=== PATIENT | female | born 1955 | race Caucasian/White ===

== ENCOUNTER 2019-10-03 07:48 | Inpatient (IN) ==
--- NOTE | 2019-09-10 16:19 | PAT Medication Instructions ---
Medication Instructions Date of Service September 10, 2019 Home Medications albuterol sulfate 4 inh INHALATION QID PRN amlodipine 5 mg PO QAM indomethacin 25 mg PO BID levothyroxine 100 mcg PO QAM linaclotide [Linzess] 72 mcg PO QAM lisinopril 30 mg PO QAM lorcaserin 10 mg PO BID omeprazole magnesium [Prilosec OTC] 20 mg PO QAM oxycodone-acetaminophen 1 tab PO Q6H PRN ASK your surgeon for instructions indomethacin 25 mg PO BID DO NOT take the morning of surgery linaclotide [Linzess] 72 mcg PO QAM lisinopril 30 mg PO QAM lorcaserin 10 mg PO BID Take morning of surgery With a small sip of water, OTHERWISE NOTHING TO EAT OR DRINK AFTER MIDNIGHT: albuterol sulfate 4 inh INHALATION QID PRN (if needed, and bring with you to the hospital) amlodipine 5 mg PO QAM levothyroxine 100 mcg PO QAM omeprazole magnesium [Prilosec OTC] 20 mg PO QAM oxycodone-acetaminophen 1 tab PO Q6H PRN (if needed, may be taken up to four hours before surgery) Other Notes If you have any questions please call us at [phone] or [phone] or or [phone]
--- NOTE | 2019-09-11 08:41 | History & Physical Report ---
Date of Service September 11, 2019 date of surgery: 10-03-19 Assessment & Plan (1) Arthritis of knee, left: Risks and benefits of procedure discussed in detail today, patient would like to proceed with a Left total knee replacement at [facility] as scheduled. will obtain medical clearance from Dr Covarrubias prior to surgery as well as obtain PATs at [facility]. Will place on ASA 81mg po bid x 1 month post op, f/u 2 weeks post op for routine post-operative care and x-ray, sooner if having any problems. will make arrangements for HHPT at the time of discharge. At this point in time, has failed conservative measures and would like to proceed with surgical intervention. History of Present Illness Chief Complaint: left knee pain Primary Care Provider: Hakan Covarrubias MD Blanca is a 64 year old female who complains of left knee pain, presents for pre- op evaluation prior to a left total knee replacement by dr Agustin at [facility]. she c omplains of pain, decreased range of motion, instability and stiffness in the left knee. she states that the symptoms have been chronic and non-traumatic and the symptoms occur constantly with intermittent worsening. Currently the patient states that the symptoms are moderate-severe. The pain is described as aching, sharp and throbbing. The symptoms occur continuously. The symptoms are aggravated by ascending stairs, daily activities, first steps while awake walking. Prior NSAIDs include Ibuprofen and Aleve. she states that she has had previous cortisone and visco injections at least 4 or 5 years ago. Allergies Allergy/AdvReac Type Severity Reaction Status Date / Time No Known Allergies Allergy Verified 08/22/19 11:50 Home Medications Home Medications Medication Instructions Recorded Confirmed Type albuterol sulfate 4 inh INHALATION QID PRN 08/22/19 08/22/19 History amlodipine 5 mg PO QAM 08/22/19 08/22/19 History indomethacin 25 mg PO BID 08/22/19 08/22/19 History levothyroxine 100 mcg PO QAM 08/22/19 08/22/19 History linaclotide [Linzess] 72 mcg PO QAM 08/22/19 08/22/19 History lisinopril 30 mg PO QAM 08/22/19 08/22/19 History lorcaserin 10 mg PO BID 08/22/19 08/22/19 History omeprazole magnesium [Prilosec OTC] 20 mg PO QAM 08/22/19 08/22/19 History oxycodone-acetaminophen 1 tab PO Q6H PRN 08/22/19 08/22/19 History Past Med/Surg History Medical History Asthma allergy induced Constipation GERD (gastroesophageal reflux disease) History of anesthesia reaction pt states that she had episode of waking during surgery and concerned that she was not proplerly sedated Hypertension Osteoarthritis Vocal cord nodules Surgical History History of right knee joint replacement History of tonsillectomy and adenoidectomy Hx of colonoscopy Hx of removal of cyst thymus gland Family History (Updated 09/11/19 @ 11:40 by Prateek Greer PA-C) Unknown No family history of adverse response to anesthesia Social History Preferred Language: Welsh Communication Ability: Effective Beliefs That Will Affect Care: None Current Living Situation: Spouse Feels Safe at Home: Yes Safety Concerns: Feels Safe At This Time Smoking Status: Former smoker Do You Dip or Chew Tobacco: No ; Smoking End Date: 05/2019 ; Second Hand Exposure: No ; Hx Alcohol Use: No Hx Substance Use: No Review of Systems Review of Systems: All systems reviewed & are unremarkable except as noted in HPI & below Constitutional: no fever, no chills and no sweats Respiratory: no cough and no dyspnea Cardiovascular: no chest pain, no dyspnea and no orthopnea Gastrointestinal: no abdominal pain, no nausea and no vomiting Musculoskeletal: as per Subjective / HPI Physical Exam Physical Exam: Ht: 4'11" Wt: 230lb BMI: 46.1 BP: 130/68 Pulse: 66 Constitutional: WD/WN, vitals as above no acute distress Respiratory: normal respiratory effort, lungs clear to auscultation no respiratory distress, no labored breathing and does not use accessory muscles Cardiovascular: RRR, no murmur, no edema Gastrointestinal (Abdomen): normal bowel sounds, soft, nontender, no hepatosplenomegaly Musculoskeletal: Knee: + knee abnormal to inspection (left knee), + effusion (mild ), + limited ROM of knee (ROM 0/3/110), + knee ROM with crepitation, + joint line tenderness (medial joint line) and + Tung's sign positive; no deformity, no skin erythema, no ecchymosis, no valgus laxity, no varus laxity, anterior drawer test negative, Mel's sign negative and pivot shift test negative Results & Data Laboratory Results Left Knee X-ray from 07/27/19 showing advanced degenerative changes to the left knee, greatest medial compartments and patellofemoral joint, showing joint space narrowing, osteophyte formation and subchondral sclerosis. no acute bony pathology noted.
--- NOTE | 2019-09-11 13:44 | Anesthesiology Consultation ---
Date of Service September 11, 2019 Assessment & Plan (1) Encounter for pre-operative examination: Pt will need echo prior to surgery to evaluate murmur. S/P R TKA 2013 -- SAB + REGIONAL x 1 ATTEMPT EACH. NO ISSUES NOTED ON RECORD, BUT PATIENT REPORTS INTRAOPERATIVE AWARENESS THAT SHE FOUND VERY DISCONCERTING AND SHE IS CONCERNED ABOUT THIS HAPPENING AGAIN. Chart Review Chart Review: Acceptable Risk for Surgery (pending PCP clearance and echo (TBA)) and Patient seen in Pre Admission Testing Teaching & Discussion Instructed NPO after midnight before surgery, except medications with 15 cc of water. Medication instructions provided according to the PAT guidelines. History Surgery Operation Date: 10/03/19 09:00 Proposed Procedures p Left Total Knee Arthroplasty - Jovan Agustin DO Height/Weight Height: 5 ft Weight: 105.8 kg Allergies Allergy/AdvReac Type Severity Reaction Status Date / Time No Known Allergies Allergy Verified 08/22/19 11:50 Medications Home Medications Medication Instructions Recorded Confirmed Last Taken albuterol sulfate 4 inh INHALATION QID PRN 08/22/19 08/22/19 Unknown amlodipine 5 mg PO QAM 08/22/19 08/22/19 Unknown indomethacin 25 mg PO BID 08/22/19 08/22/19 Unknown levothyroxine 100 mcg PO QAM 08/22/19 08/22/19 Unknown linaclotide [Linzess] 72 mcg PO QAM 08/22/19 08/22/19 Unknown lisinopril 30 mg PO QAM 08/22/19 08/22/19 Unknown lorcaserin 10 mg PO BID 08/22/19 08/22/19 Unknown omeprazole magnesium [Prilosec OTC] 20 mg PO QAM 08/22/19 08/22/19 Unknown oxycodone-acetaminophen 1 tab PO Q6H PRN 08/22/19 08/22/19 Unknown Past Medical History Medical History (Updated 09/12/19 @ 08:57 by Ben Mcguire) Asthma allergy induced. Since quitting smoking 05/2019, has used albuterol only 3x. Constipation GERD (gastroesophageal reflux disease) Hypertension Morbid obesity Osteoarthritis Vocal cord nodules Exercise / Class Metabolic Activity II 4-5 Yardwork/Stairs/Walk up hill (Denies CP or SOB with 1 FOS) Past Family History Family History (Updated 09/11/19 @ 11:40 by Prateek Greer PA-C) Unknown No family history of adverse response to anesthesia Past Surgical History Surgical History History of right knee joint replacement History of tonsillectomy and adenoidectomy Hx of colonoscopy Hx of removal of cyst thymus gland Past Anesthesia History No Family Hx of Anesthesia Complications Pt had some awareness with previous knee surgery and found it very disconcerting; she is concerned about this happening again. History of PONV No Hx of PONV and No Hx of Motion Sickness Social History Smoking Status: Former smoker Do You Dip or Chew Tobacco: No Smoking End Date: 05/2019 Hx Alcohol Use: No Hx Substance Use: No Review of Systems Pt denies any recent chest pain, shortness of breath, palpitations, cough, fever or URI. Physical Exam Vital Signs BP: 148/80 P: 63bpm SPO2: 97% RA T: 97.8 F R: 14 Constitutional + obese ENMT Mouth: + dentures (partial upper); no chipped teeth and no loose teeth Thyromental Distance: < 3.5 Finger Breadths (3) Mallampati Class: II Neck normal visual inspection; neck extension not limited Respiratory normal respiratory effort Auscultation: lungs clear to auscultation bilaterally Cardiovascular Rate/Rhythm: regular rate and regular rhythm Heart Sounds: + murmur (II/ systolic, loudest at RSB/2nd ICS) Vessels: no carotid bruit Extremities: no edema Testing Laboratory Results 09/11/19 13:51 09/11/19 13:51 PT 10.1 Seconds (9.0-12.0) 09/11/19 13:51 INR 1.0 (0.9-1.1) 09/11/19 13:51 APTT 29.5 Seconds (21.0-31.0) 09/11/19 13:51 Hemoglobin A1c 5.8 % (4.5-5.6) H 09/11/19 13:51 Urine Color Yellow 09/11/19 13:51 Urine Appearance Clear (Clear) 09/11/19 13:51 Urine pH 5.5 (4.5-7.5) 09/11/19 13:51 Ur Specific [place] 1.023 (1.000-1.030) 09/11/19 13:51 Urine Protein Negative (Negative) 09/11/19 13:51 Urine Glucose (UA) Negative (Negative) 09/11/19 13:51 Urine Ketones Negative (Negative) 09/11/19 13:51 Urine Nitrite Negative (Negative) 09/11/19 13:51 Ur Leukocyte Esterase Negative (Negative) 09/11/19 13:51 Urine WBC (Auto) 1-5 /hpf (0-5) 09/11/19 13:51 Urine RBC (Auto) 5-10 /hpf (0-4) H 09/11/19 13:51 U Hyaline Cast (Auto) 1-5 /lpf (0-5) 09/11/19 13:51 U Epithel Cells (Auto) >30 /lpf (0-5) H 09/11/19 13:51 Urine Bacteria (Auto) Negative (Negative) 09/11/19 13:51 Blood Type A Negative 09/11/19 13:51 Antibody Screen NEGATIVE 09/11/19 13:51 Electrocardiogram Date: 09/11/19 Findings: + SB @ (59) Nonspecific ST abnormality. Chest X-Ray Date: 09/11/19 Findings: + NAD Median sternotomy wires noted. (Patient had thymectomy, not CABG).
--- NOTE | 2019-09-11 14:04 | Electrocardiogram Report ---
Test Reason : Blood Pressure : / mmHG Vent. Rate : 059 BPM Atrial Rate : 059 BPM P-R Int : 184 ms QRS Dur : 098 ms QT Int : 446 ms P-R-T Axes : 071 060 061 degrees QTc Int : 441 ms Sinus bradycardia Nonspecific ST abnormality Abnormal ECG No previous ECGs available Confirmed by Victor Hugo Cohen ([id number]) on 09/11/2019 2:04:50 PM Referred By: Jovan Agustin Confirmed By:Victor Hugo Cohen
--- NOTE | 2019-09-11 14:58 | XRay Report ---
XR chest Pre-admission PA/Lat CLINICAL HISTORY: Preoperative evaluation. COMPARISON STUDY: Chest radiograph November 09, 2013. FINDINGS: Lung volumes are normal. Lungs are clear. There is no pneumothorax or pleural effusion. Car diac size is normal. Mediastinal contours are normal. There is no evidence for pulmonary edema. Media n sternotomy wires are incidentally noted. IMPRESSION: No acute cardiopulmonary findings. ACT 112: Negative or not required by law. Electronically signed by: Chirag Cannon M.D. 09/11/2019 2:57 PM
[2019-09-11 15:58] LABS: Appearance Urine Clear (Clear); Bacteria Urine Automated Negative (Negative); Basophils # (auto) 0.05 K/uL (0-0.2); Basophils % (auto) 0.6 %; Bilirubin Urine Negative (Negative); Blood Urine Trace (Negative); Color Urine Yellow; Eosinophils # (auto) 0.24 K/uL (0-0.5); Epithelial Cell Urine Auto >30 /lpf (0-5); Glucose Urine UA Negative (Negative); Hemoglobin 13.9 g/dL (12.0-16.0); Immature Granulocytes # (auto) 0.05 K/uL (0.00-0.02); Immature Granulocytes % (auto) 0.6 %; Ketones Urine Negative (Negative); Leukocyte Esterase Urine Negative (Negative); Lymphocytes # (auto) 2.95 K/uL (1.2-3.4); Lymphocytes % (auto) 37.5 %; Mean Corpuscular Hgb Conc 33.1 g/dL (32-36); Mean Corpuscular Volume 93.8 fL (80-100); Mean Platelet Volume 9.6 fL (7.4-10.4); Monocytes % (auto) 8.9 %; Neutrophils # (auto) 3.88 K/uL (1.4-6.5); Neutrophils % (auto) 49.4 %; Nitrite Urine Negative (Negative); Platelet Count 373 K/uL (130-400); Protein Urine Negative (Negative); RDW Coefficient of Variation 14.4 % (11.5-14.5); RDW Standard Deviation 48.9 fL (36.4-46.3); Red Blood Count 4.48 M/uL (4.2-5.4); Specific Gravity Urine 1.023 (1.000-1.030); Urobilinogen Urine Negative (Negative); White Blood Count 7.87 K/uL (4.8-10.8); pH Urine 5.5 (4.5-7.5)
[2019-09-11 16:14] LABS: Partial Thromboplastin Ratio 1.1; Partial Thromboplastin Time 29.5 Seconds (21.0-31.0); Prothrombin Time 10.1 Seconds (9.0-12.0)
[2019-09-11 16:23] LABS: Albumin Level 3.4 gm/dl (3.4-5.0); BUN Creatinine Ratio 20.8 (10-20); Calcium 9.2 mg/dl (8.5-10.1); Creatinine Clr Calc Pharmacy 96.1 ml/min; Est GFR (African American) 108.7; Est GFR (Non-African American) 93.8; Potassium 4.6 mmol/L (3.5-5.1)
[2019-09-12 07:24] LABS: Estimated Average Glucose 120 mg/dl; Hemoglobin A1C 5.8 % (4.5-5.6)
[~2019-10-03 07:48] MED LIST: ACETAMINOPHEN 500 MG TAB PO SCH; BUPIVACAINE 0.5 % 5 MG/1 ML PF 10ML VIAL ONE; CEFAZOLIN 2000MG 2,000 MG/15 ML SYR IV SCH; CeleBREX 200 MG CAP PO SCH; FAMOTIDINE 20 MG TAB PO SCH; GABAPENTIN 600 MG DOSE PO SCH; LR 500ML BOLUS, THEN 15ML/HR IV SCH; ROPIVACAINE 0.5% 5 MG/ML 30 ML VIAL ONE; TRANEXAMIC ACID 1,000 MG **IV Intra-op IV SCH; TRANEXAMIC ACID 1,000 MG **IV Pre-op IV SCH; dexAMETHasone 4 MG TAB PO SCH
--- NOTE | 2019-10-03 08:35 | History & Physical Bridge Note ---
Date of Service October 03, 2019 History & Physical Bridge Note I have examined the patient, reviewed the History & Physical and in the interval since the performance of the History & Physical I have noted the following changes of clinical significance: no changes noted
[2019-10-03] MEDS ORDERED: fentaNYL citrate 100 MCG/2 ML VIAL ONE (09:22)
[2019-10-03] MEDS ORDERED: LIDOCAINE HCL 2% 2 ML VIAL/AMP(20MG/ML) INFIL ONE (09:22)
[2019-10-03] MEDS ORDERED: PROPOFOL IV EMULSION 10 MG/ML 20 ML VIAL IV ONE (09:22)
[2019-10-03] MEDS ORDERED: MIDAZOLAM HCL 1 MG/ML 2ML VIAL ONE ×3 (09:22→12:49)
[2019-10-03] MEDS ORDERED: ONDANSETRON INJ 2 MG/ML 2 ML VIAL IV PRN ×2 (10:47→13:23)
[2019-10-03] MEDS ORDERED: BACITRACIN INJ 50,000 UNIT VIAL ONE (10:47)
[2019-10-03] MEDS ORDERED: KETOROLAC 30 MG/ML VIAL IV PRN (10:47)
[2019-10-03] MEDS ORDERED: ATROPINE SULFATE 0.1 MG/ML 10ML SYR IV PRN (10:47)
[2019-10-03] MEDS ORDERED: ePHEDrine sulfate 50 MG/ML AMP IV PRN (10:47)
[2019-10-03] MEDS ORDERED: HYDROmorphone INJ 1 MG/ML SYRINGE IV PRN ×2 (10:47→13:23)
[2019-10-03] MEDS ORDERED: ROPIVACAINE 0.5% HCL/PF 150 MG, BUPIVACAINE 0.5% MPF 30 ML, EPINEPHrine 30MG/30ML (OR U... INSTIL SCH (11:15)
--- NOTE | 2019-10-03 12:25 | Operative Report ---
Post Operative Report Pre & Post Diagnosis Operation Date: 10/03/19 10:20 Pre-Op Diagnosis: Left Knee Osteoarthritis Post-Op Diagnosis: Left Knee Osteoarthritis I identified the patient and participated in the time-out.: Yes Procedure Operation Date: 10/03/19 10:20 Actual Procedures p Left Total Knee Arthroplasty(Left utilizing journey to [employer] size 4 femur 3 tibia 9 polyethylene 29 oval patella) - Jovan Agustin DO Surgeon Jovan Agustin DO Siebel Administrator CARLO Cordero Estimated Blood Loss 5 Findings Consistent with Post-Op Diagnosis Patient resents with severe end-stage tricompartmental degenerative joint disease left knee for left total knee arthroplasty subchondral sclerosis marginal osteophytes varus alignment subchondral cystic changes moderate to large effusion was noted Specimens Bone and cartilage Drains Medium bore Hemovac Complications none Disposition Accompanied Patient To Recovery: No Disposition: Recovery Room Indications Patient presents with severe end-stage DJD left knee after failed attempted conservative management including physical therapy anti-inflammatories relative rest activity modification corticosteroid injection Visco supplementation the above intraoperative findings were noted. Description of Procedure After proper prepping and draping of the left lower extremity anterior midline incision was made over the region of the extensor extensor mechanism after meticulous hemostasis was obtained and maintained in subcutaneous tissues a medial parapatellar incision was made The patella was subluxed lateralward the medial lateral gutter were cleaned from any hypertrophic synovitis and scar tissue of the distal femoral block was placed and the distal femoral osteotomy cut was made subsequently the chamfers anterior and posterior osteotomy cuts were made utilizing the 4-in-1 block the tibia was subsequently subluxed anteriorward medial and ateral meniscal remnants were excised in their entirety remnants of the anterior and posterior cruciate ligaments were excised in their entirety excellent exposure of the proximal tibia was obtained the tibial osteotomy guide was placed on the proximal tibial osteotomy cut was made once again the knee was irrigated with copious amounts of sterile saline solution the patella was subsequently everted lateralward thickened scar tissue around the patella was removed the patella was subsequently cut utilizing a freehand technique and was drilled prepared for final preparation and placement of patella socially flexion-extension gaps were checked and the equal and symmetric trials were placed to the appropriate femoral and tibial trials with poly-spacer being placed for equal flexion and extension gaps and full range of motion including extension to 0 and flexion to 140 the trial components after having been taken to recovery range of motion was subsequently removed meticulous hemostasis was obtained and maintained subsequently a knee block injection of joint cocktail including ropivacaine 0.5% 150 mg. Bupivacaine 0.5% epinephrine 1-200,030 mL's toradol 30 mg dexamethasone 4 mg ketamine 10 mg clonidine 100 micrograms normal saline solution 30 mg was infiltrated into the soft tissues of the posterior knee medial lateral gutters and periosteal synovium special attention was paid to protect neurovascular structures at all times subsequently trial components having been removed the knee was irrigated with sterile saline solution. debris was removed the proximal tibia was subsequently prepared and was made ready for the placement of the tibial component tibial component was also cemented and tamped into position the femoral component was subsequently placed and cemented in the position the patellar component was subsequently cemented in position because hemostasis once again obtained and maintained wound having been thoroughly irrigated with debridement and debridement lavage was per formed as well as a medial parapatellar incision closed with #1 Vicryl in interrupted fashion subcutaneous was closed with #2 Vicryl skin was closed with skin clips. PA-C was necessary for prepping and drapping as well as wound closure of deep fascia Sub cutaneous tissue and skin and was necessary for the case. A sterile compressive dressing was placed patient was taken to recovery in stable condition of report dictated by Vamsi I attest to the content of the Intraoperative Record and any orders documented therein. Any exceptions are noted below. I attest to the content of the Intraoperative Record and any orders documented therein. Any exceptions are noted below.
--- NOTE | 2019-10-03 12:28 | Operative Report ---
Post Operative Report Pre & Post Diagnosis Operation Date: 10/03/19 10:20 Pre-Op Diagnosis: Left Knee Osteoarthritis Post-Op Diagnosis: Left Knee Osteoarthritis I identified the patient and participated in the time-out.: Yes Procedure Operation Date: 10/03/19 10:20 Actual Procedures p Left Total Knee Arthroplasty(Left) utilizing [employer] journey to non- block total knee arthroplasty size 4 femur size 3 tibia size 9 polyethylene size 29 oval patella- Jovan Agustin DO Surgeon Jovan Agustin DO Procurement Buyer CARLO Cordero Estimated Blood Loss 5 Findings Consistent with Post-Op Diagnosis Patient presents with severe end-stage DJD left knee [id number] varus alignment 10 degree flexion contracture medial and lateral marginal osteophyte subchondral cystic formation with moderate to large effusion no response to conservative management Specimens Bone and cartilage Drains Medium bore Hemovac Complications none Disposition Accompanied Patient To Recovery: No Disposition: Recovery Room Indications Patient presents being seen evaluate complaints of ongoing pain trouble to her left knee no response to conservative management she is failed attempted corticosteroid injection Visco supplementation relative rest activity modification weight loss she has had a previous right knee replacement done successfully presents today for left total knee arthroplasty the above intraoperative findings were noted. Description of Procedure After proper prepping and draping of the left lower extremity anterior midline incision was made over the region of the extensor extensor mechanism after meticulous hemostasis was obtained and maintained in subcutaneous tissues a medial parapatellar incision was made The patella was subluxed lateralward the medial lateral gutter were cleaned from any hypertrophic synovitis and scar tissue of the distal femoral block was placed and the distal femoral osteotomy cut was made subsequently the chamfers anterior and posterior osteotomy cuts were made utilizing the 4-in-1 block the tibia was subsequently subluxed anteriorward medial and ateral meniscal remnants were excised in their entirety remnants of the anterior and posterior cruciate ligaments were excised in their entirety excellent exposure of the proximal tibia was obtained the tibial osteotomy guide was placed on the proximal tibial osteotomy cut was made once again the knee was irrigated with copious amounts of sterile saline solution the patella was subsequently everted lateralward thickened scar tissue around the patella was removed the patella was subsequently cut utilizing a freehand technique and was drilled prepared for final preparation and placement of patella socially flexion-extension gaps were checked and the equal and symmetric trials were placed to the appropriate femoral and tibial trials with poly-spacer being placed for equal flexion and extension gaps and full range of motion including extension to 0 and flexion to 140 the trial components after having been taken to recovery range of motion was subsequently removed meticulous hemostasis was obtained and maintained subsequently a knee block injection of joint cocktail including ropivacaine 0.5% 150 mg. Bupivacaine 0.5% epinephrine 1-200,030 mL's toradol 30 mg dexamethasone 4 mg ketamine 10 mg clonidine 100 micrograms normal saline solution 30 mg was infiltrated into the soft tissues of the posterior knee medial lateral gutters and periosteal synovium special attention was paid to protect neurovascular structures at all times subsequently trial components having been removed the knee was irrigated with sterile saline solution. debris was removed the proximal tibia was subsequently prepared and was made ready for the placement of the tibial component tibial component was also cemented and tamped into position the femoral component was subsequently placed and cemented in the position the patellar component was subsequently cemented in position because hemostasis once again obtained and maintained wound having been thoroughly irrigated with debridement and debridement lavage was performed as well as a medial parapatellar incision closed with #1 Vicryl in interrupted fashion subcutaneous was closed with #2 Vicryl skin was closed with skin clips. PA-C was necessary for prepping and drapping as well as wound closure of deep fascia Sub cutaneous tissue and skin and was necessary for the case. A sterile compressive dressing was placed patient was taken to recovery in stable condition of report dictated by Vamsi I attest to the content of the Intraoperative Record and any orders documented therein. Any exceptions are noted below. I attest to the content of the Intraoperative Record and any orders documented therein. Any exceptions are noted below.
[2019-10-03] MEDS ORDERED: MAGNESIUM HYDROXIDE SUSP 30 ML UDC PO PRN (13:23)
[2019-10-03] MEDS ORDERED: METOCLOPRAMIDE HCL INJ 5 MG/ML 2 ML VIAL IV PRN (13:23)
[2019-10-03] MEDS ORDERED: NALOXONE HCL 0.4 MG/1 ML VIAL/CARP IV PRN (13:23)
[2019-10-03] MEDS ORDERED: bisacodyL 10 MG SUPP PR PRN (13:23)
[2019-10-03] MEDS ORDERED: SODIUM CHLORIDE 0.9% 1000ML 1,000 ML IV SCH (13:30)
--- NOTE | 2019-10-03 13:47 | XRay Report ---
TWO VIEWS LEFT KNEE CLINICAL HISTORY: Postoperative examination. FINDINGS: AP and crosstable lateral portable views of the left knee are obtained. A left knee arthrop lasty is in near anatomic alignment. There has been undersurface remodeling of the patella. No acute fracture is seen. There are expected postoperative changes around the knee including a surgical drain , soft tissue edema, and subcutaneous gas. IMPRESSION: Expected postoperative changes status post left knee arthroplasty. No acute fracture is s een. ACT 112: Negative or not required by law. Electronically signed by: Jaison Adams M.D. 10/03/2019 1:45 PM
--- NOTE | 2019-10-03 13:55 | Anesthesiology Progress Note ---
Date of Service October 03, 2019 Anesthesia Post Procedure Vital Signs Vital Signs: Temp Pulse Pulse Resp BP BP Pulse Ox 10/03/19 13:45 67 17 134/75 94 10/03/19 13:35 64 14 121/65 94 10/03/19 13:25 71 21 120/62 94 10/03/19 13:17 36.3 C L 76 16 99/64 L 95 10/03/19 08:45 36.5 C 75 20 183/92 H 97 Transfer of Care Handoff Completed per policy Notes Mental Status: alert / awake / arousable Patient Amnestic to Procedure: Yes Nausea / Vomiting: adequately controlled Pain: adequately controlled Airway Patency, RR, SpO2: stable & adequate BP & HR: stable & adequate Hydration State: stable & adequate Neuraxial Anesthesia: was administered and sensory block is resolving Anesthetic Complications: no major complications apparent
[2019-10-03] MEDS ORDERED: ALBUTEROL HFA INHALER 8.5 GM INH PRN (14:31)
[2019-10-03] MEDS: ACETAMINOPHEN 500 MG TAB PO SCH ×2 (15:22→22:31)
[2019-10-03] MEDS: KETOROLAC 30 MG/ML VIAL IV SCH ×2 (15:22→20:47)
[2019-10-03] MEDS: CEFAZOLIN 2000MG 2,000 MG/15 ML SYR IV SCH (18:02)
[2019-10-03] MEDS: OXYCODONE HCL IR 5 MG TAB (IMMEDIATE RELEASE) PO PRN ×2 (19:09→23:46)
[2019-10-03] MEDS: GENERAL ORDER PROBLEM SCH ×6 (20:33→22:34)
[2019-10-03] MEDS: DOCUSATE SODIUM 100 MG CAP PO SCH (20:46)
[2019-10-03] MEDS: ASPIRIN 81 MG ECTAB PO SCH (20:47)
[2019-10-03] MEDS ORDERED: SENNA 8.6 MG TAB PO SCH (21:00)
[2019-10-03] MEDS ORDERED: ZOLPIDEM TARTRATE 5 MG TAB PO PRN (22:58)
[2019-10-04] MEDS: CEFAZOLIN 2000MG 2,000 MG/15 ML SYR IV SCH (03:54)
[2019-10-04] MEDS: KETOROLAC 30 MG/ML VIAL IV SCH ×2 (03:54→07:42)
[2019-10-04] MEDS: ACETAMINOPHEN 500 MG TAB PO SCH ×2 (05:32→13:07)
[2019-10-04 06:12] LABS: Hematocrit (blood only) 32.4 % (37-47); Hemoglobin 10.6 g/dL (12.0-16.0); Mean Corpuscular Hemoglobin 30.5 pg (25-34); Mean Corpuscular Hgb Conc 32.7 g/dL (32-36); Mean Corpuscular Volume 93.4 fL (80-100); Mean Platelet Volume 9.2 fL (7.4-10.4); Platelet Count 299 K/uL (130-400); RDW Standard Deviation 51.5 fL (36.4-46.3); Red Blood Count 3.47 M/uL (4.2-5.4)
[2019-10-04] MEDS ORDERED: LEVOTHYROXINE SODIUM 100 MCG TABLET PO SCH (06:30)
[2019-10-04 06:51] LABS: BUN Creatinine Ratio 27.5 (10-20); Calcium 8.5 mg/dl (8.5-10.1); Creatinine Clr Calc Pharmacy 108.4 ml/min; Est GFR (African American) 112.3; Est GFR (Non-African American) 96.9
[2019-10-04] MEDS: ASPIRIN 81 MG ECTAB PO SCH (07:43)
[2019-10-04] MEDS: DOCUSATE SODIUM 100 MG CAP PO SCH (07:43)
[2019-10-04] MEDS ORDERED: Nursing to Pharmacy Communication ONE (07:47)
--- NOTE | 2019-10-04 07:47 | Anesthesiology Progress Note ---
Date of Service October 04, 2019 Anesthesia Post Procedure Vital Signs Vital Signs: Temp Pulse Pulse Pulse Resp BP BP 10/04/19 03:15 36.6 C 74 16 153/79 H 10/03/19 23:15 36.7 C 77 18 142/79 H 10/03/19 16:06 36.5 C 74 16 134/73 10/03/19 15:24 35.9 C L 68 16 146/85 H 10/03/19 14:48 36.4 C L 70 16 149/82 H 10/03/19 14:30 36.5 C 68 16 128/91 10/03/19 13:55 36.4 C L 67 18 137/91 10/03/19 13:45 67 17 134/75 10/03/19 13:35 64 14 121/65 10/03/19 13:25 71 21 120/62 10/03/19 13:17 36.3 C L 76 16 99/64 L 10/03/19 08:45 36.5 C 75 20 183/92 H Pulse Ox 10/04/19 03:15 93 10/03/19 23:15 94 10/03/19 16:06 96 10/03/19 15:24 95 10/03/19 14:48 96 10/03/19 14:30 96 10/03/19 13:55 93 10/03/19 13:45 94 10/03/19 13:35 94 10/03/19 13:25 94 10/03/19 13:17 95 10/03/19 08:45 97 Pain Intensity Left Knee: Pain Intensity: 6 Notes Mental Status: alert / awake / arousable and participated in evaluation Patient Amnestic to Procedure: Yes Nausea / Vomiting: adequately controlled Pain: adequately controlled Airway Patency, RR, SpO2: stable & adequate BP & HR: stable & adequate Hydration State: stable & adequate Neuraxial Anesthesia: was administered and sensory block resolved Anesthetic Complications: no major complications apparent and Pt Satisfied with anesthetic care
[2019-10-04] MEDS: OXYCODONE HCL IR 5 MG TAB (IMMEDIATE RELEASE) PO PRN ×3 (08:21→15:18)
--- NOTE | 2019-10-04 08:25 | Orthopedic Progress Note ---
Date of Service October 04, 2019 Assessment & Plan (1) Arthritis of knee, left: Postop day 1 status post left total knee arthroplasty. PT/OT protocols. Weightbearing as tolerated. DVT prophylaxis with aspirin twice daily, Ney, MAYLIN lang. Pain management with hydromorphone, Toradol, oxycodone, Tylenol. Leukocytosis-patient currently asymptomatic at this time. Likely due to preoperative steroids and surgical stress. DC planning-Home health services upon discharge. Subjective Postop day 1 Patient is currently sitting up in bed. She is awake and alert. She is having some mild discomfort in the knee itself however she states that the pain is fairly well controlled at this time. Denies any shortness of breath, chest pain, lightheadedness. No other complaints at this time. Physical Exam Physical Exam: Dressings are clean, dry, and intact. Calves are soft nontender. Neurovascular is intact. Toes are mobile. She has good dorsiflex ion and plantarflexion of the foot/ankle of the operative side. Hemovac drainage was 45 mL's from the previous shift. Results & Data ([facility]) Vital Signs (Past 12 Hours) Vital Signs Temp Pulse Resp BP Pulse Ox 10/04/19 08:06 36.5 C 68 18 128/79 96 10/04/19 03:15 36.6 C 74 16 153/79 H 93 10/03/19 23:15 36.7 C 77 18 142/79 H 94 Laboratory Results Laboratory Results WBC 17.00 K/uL (4.8-10.8) H 10/04/19 05:57 RBC 3.47 M/uL (4.2-5.4) L 10/04/19 05:57 Hgb 10.6 g/dL (12.0-16.0) L 10/04/19 05:57 Hct 32.4 % (37-47) L 10/04/19 05:57 MCV 93.4 fL (80-100) 10/04/19 05:57 MCH 30.5 pg (25-34) 10/04/19 05:57 MCHC 32.7 g/dL (32-36) 10/04/19 05:57 RDW Std Deviation 51.5 fL (36.4-46.3) H 10/04/19 05:57 RDW Coeff of Roge 15.0 % (11.5-14.5) H 10/04/19 05:57 Plt Count 299 K/uL (130-400) 10/04/19 05:57 MPV 9.2 fL (7.4-10.4) 10/04/19 05:57 Immature Gran % (Auto) 0.6 % 09/11/19 13:51 Neut % (Auto) 49.4 % 09/11/19 13:51 Lymph % (Auto) 37.5 % 09/11/19 13:51 [place] % (Auto) 8.9 % 09/11/19 13:51 Eos % (Auto) 3.0 % 09/11/19 13:51 Baso % (Auto) 0.6 % 09/11/19 13:51 Immature Gran # (Auto) 0.05 K/uL (0.00-0.02) H 09/11/19 13:51 Neut # (Auto) 3.88 K/uL (1.4-6.5) 09/11/19 13:51 Lymph # (Auto) 2.95 K/uL (1.2-3.4) 09/11/19 13:51 [place] # (Auto) 0.70 K/uL (0.11-0.59) H 09/11/19 13:51 Eos # (Auto) 0.24 K/uL (0-0.5) 09/11/19 13:51 Baso # (Auto) 0.05 K/uL (0-0.2) 09/11/19 13:51 PT 10.1 Seconds (9.0-12.0) 09/11/19 13:51 INR 1.0 (0.9-1.1) 09/11/19 13:51 APTT 29.5 Seconds (21.0-31.0) 09/11/19 13:51 PTT Ratio 1.1 09/11/19 13:51 Sodium 139 mmol/L (136-145) 10/04/19 05:57 Potassium 4.0 mmol/L (3.5-5.1) 10/04/19 05:57 Chloride 107 mmol/L (98-107) 10/04/19 05:57 Carbon Dioxide 28 mmol/L (21-32) 10/04/19 05:57 Anion Gap 4.0 (3-11) 10/04/19 05:57 BUN 16 mg/dl (7-18) 10/04/19 05:57 Creatinine 0.59 mg/dl (0.6-1.2) L 10/04/19 05:57 Est Cr Clr Drug Dosing 108.4 ml/min 10/04/19 05:57 Est GFR ( Amer) 112.3 10/04/19 05:57 Est GFR (Non-Af Amer) 96.9 10/04/19 05:57 BUN/Creatinine Ratio 27.5 (10-20) H 10/04/19 05:57 Glucose 150 mg/dl (70-99) H 10/04/19 05:57 Estimat Average Glucose 120 mg/dl 09/11/19 13:51 Hemoglobin A1c 5.8 % (4.5-5.6) H 09/11/19 13:51 Calcium 8.5 mg/dl (8.5-10.1) 10/04/19 05:57 Albumin 3.4 gm/dl (3.4-5.0) 09/11/19 13:51 Urine Color Yellow 09/11/19 13:51 Urine Appearance Clear (Clear) 09/11/19 13:51 Urine pH 5.5 (4.5-7.5) 09/11/19 13:51 Ur Specific [place] 1.023 (1.000-1.030) 09/11/19 13:51 Urine Protein Negative (Negative) 09/11/19 13:51 Urine Glucose (UA) Negative (Negative) 09/11/19 13:51 Urine Ketones Negative (Negative) 09/11/19 13:51 Urine Blood Trace (Negative) H 09/11/19 13:51 Urine Nitrite Negative (Negative) 09/11/19 13:51 Urine Bilirubin Negative (Negative) 09/11/19 13:51 Urine Urobilinogen Negative (Negative) 09/11/19 13:51 Ur Leukocyte Esterase Negative (Negative) 09/11/19 13:51 Urine WBC (Auto) 1-5 /hpf (0-5) 09/11/19 13:51 Urine RBC (Auto) 5-10 /hpf (0-4) H 09/11/19 13:51 U Hyaline Cast (Auto) 1-5 /lpf (0-5) 09/11/19 13:51 U Epithel Cells (Auto) >30 /lpf (0-5) H 09/11/19 13:51 Urine Bacteria (Auto) Negative (Negative) 09/11/19 13:51 Blood Type A Negative 09/11/19 13:51 Antibody Screen NEGATIVE 09/11/19 13:51
[2019-10-04] MEDS ORDERED: AMLODIPINE BESYLATE 5 MG TAB PO SCH (09:00)
[2019-10-04] MEDS ORDERED: PANTOprazole 40 MG TAB PO SCH (09:00)
[2019-10-04] MEDS ORDERED: MULTIVITAMIN TAB PO SCH (09:00)
[2019-10-04] MEDS ORDERED: LINACLOTIDE 72 MCG CAPSULE PO SCH (09:00)
[2019-10-04] MEDS ORDERED: lisinopriL 10 MG TAB PO SCH (09:00)
--- NOTE | 2019-10-04 18:46 | Discharge Summary ---
Date of Service date of discharge: October 04, 2019 date of Admission: 10-03-19 Admission HPI Per Admitting Provider Blanca is a 64 year old female who complains of left knee pain, presents for pre- op evaluation prior to a left total knee replacement by dr Agustin at [facility]. she complains of pain, decreased range of motion, instability and stiffness in the left knee. she states that the symptoms have been chronic and non-traumatic and the symptoms occur constantly with intermittent worsening. Currently the patient states that the symptoms are moderate-severe. The pain is described as aching, sharp and throbbing. The symptoms occur continuously. The symptoms are aggravated by ascending stairs, daily activities, first steps while awake walking. Prior NSAIDs include Ibuprofen and Aleve. she states that she has had previous cortisone and visco injections at least 4 or 5 years ago. Principal Diagnosis left knee osteoarthritis Discharge Exam Vital Signs Temp 36.6 C 10/04/19 15:16 Pulse 68 10/04/19 15:16 Resp 16 10/04/19 15:16 BP 147/77 H 10/04/19 15:16 Pulse Ox 99 10/04/19 15:16 Intake & Output 10/03/19 10/04/19 10/04/19 18:59 06:59 18:59 Intake Total 2650 / 4390 1740 / 4390 240 / 240 Output Total 820 / 1070 250 / 1070 Balance 1830 / 3320 1490 / 3320 240 / 240 Weight 109.882 kg 109.882 kg Intake: IV 250 / 1250 1000 / 1250 Lr 1,000 ml @ 15 mls/hr IV . 250 / 250 Q24H FRANKIE Rx#:[id number] Nss 1000ML 1,000 ml @ 100 mls/ 1000 / 1000 hr IV .Q10H FRANKIE Rx#:[id number] IV Perioperative 2400 / 2400 Oral 740 / 740 240 / 240 Output: Urine 750 / 900 150 / 900 Estimated Blood Loss 5 / 5 Drain Output 65 / 165 100 / 165 Left Knee Hemovac 65 / 165 100 / 165 Other: # Unmeasured Voids 1 1 Constitutional WD/WN, vitals as above no acute distress Musculoskeletal left knee: NVDI, calf SNT, negative josé miguel sign. DP palpable, able to wiggle toes/ankle movement without difficulty. Prineo clean dry and intact. expected post-operative bruising noted. Discharge Data Allergies Allergy/AdvReac Type Severity Reaction Status Date / Time No Known Allergies Allergy Verified 08/22/19 11:50 Consultations 10/03/19 13:23 Consult Case Management - Discharge Planning Routine Procedures Performed Operation Date: 10/03/19 10:20 Actual Procedures p Left Total Knee Arthroplasty(Left) - Jovan Agustin DO Ordered Studies 10/03/19 05:00 US - OR guided needle placemen Routine Hospital Course (1) Arthritis of knee, left: Postop day 1 status post left total knee arthroplasty. PT/OT protocols. Weightbearing as tolerated. DVT prophylaxis with aspirin twice daily, SCDs, MAYLIN hose. Pain management with hydromorphone, Toradol, oxycodone, Tylenol. Leukocytosis-patient currently asymptomatic at this time. Likely due to preoperative steroids and surgical stress. DC planning-Home health services upon discharge. Total Time Total Time Spent Total Time Spent (In Minutes): 20 Total Time Includes: Examination of the Patient, Discharge Planning and Medication Reconciliation Discharge Plan Discharge Items Patient Disposition: Home - Home Health Services Reason For Visit: Left Knee Osteoarthritis Discharge Diagnosis: left total knee replacement Activity: Per Instructions section Weightbearing: Full weightbearing Weightbearing Comment: as tolerated with walker Non-emergency contact: Surgeon Call non-emergency contact if: your pain is not controlled, your temperature is above 101.5, your wound has increased redness and your wound has increased drainage Follow-up/Referrals: Hakan Covarrubias MD [Primary Care Provider] - Diet: Regular Addtl Attending Provider Instructions: ACTIVITY RECOMMENDATIONS: SELF CARE INSTRUCTIONS AFTER TOTAL KNEE REPLACEMENT A. You may need to continue a physical therapy program after discharge from the hospital. There are several options available to you. Your doctor will assist you in selecting the best one for you. 1. An out-patient facility 2 to 3 times a week for therapy or home therapy. 2. Continue working on all exercises taught to you in the hospital. Your goals should be to increase bending of your knee to 90 degrees and beyond and to fully straighten your knee. B. You may progress at your own pace from walking with a walker or crutches to a cane; then to no assistive devices. C. Make walking a part of your daily routine. Be up as much as comfortable with rest periods throughout the day. Rest with leg elevation is very important. Use the ice wrap frequently for the first 3-4 weeks. D. There are no restrictions on activities. You may ride in a car, shop, participate in r d engineer and all social activities. E. Wear the long elastic stockings (MAYLIN hose) 20 hours a day for 2 weeks after surgery. They can be removed several times a day for laundering and for a bath. F. You may shower, no tub baths until cleared by your doctor. SPECIAL CARE INSTRUCTIONS: VERY IMPORTANT TO READ AND REVIEW A. There are a few signs you need to watch for after you are home. Call [facility] if you notice any of the followin. Increased severe knee pain. Some pain is expected especially when you exercise. 2. Increased swelling in your leg or knee; pain or swelling of the calf muscle in either lower leg. 3. Any fluid drainage from the incision. 4. Shortness of breath or chest pain. B. Please call [facility] at if you have any concerns or questions about your operation or recovery. The doctor or his nurse will return your call promptly. C. You must take antibiotics before dental work, bladder, bowel or other surgery. Your doctor will provide you with a permanent care to carry describing this precaution. IMPORTANT: * REMEMBER TO TAKE ASPIRIN, 81 MG, TWICE DAILY FOR 4 WEEKS UNLESS OTHERWISE DIRECTED. THIS IS YOUR BLOOD THINNER. * HIGH RISK PATIENTS MAY BE PRESCRIBED A STRONGER BLOOD THINNER. THIS WILL BE PROVIDED AT DISCHARGE. * CALL IF INCREASED PAIN, REDNESS, DRAINAGE OR FEVER GREATER THAT 101. * WEAR MAYLIN HOSE 20 HOURS PER DAY FOR 2 WEEKS. * DERMABOND Prineo- This is a mesh tape dressing that is covered with glue. It should remain in place until the incision is properly healed, usually 10-14 days. This dressing is designed to naturally slough off. You may trim the excess mesh tape as it peels off. Incision may be briefly wet in a shower. Dry immediately by blotting with a clean, dry towel. Do not bath or swim until instructed by your doctor. Do not scratch, rub, or pick at the dressing. Do not apply any topical ointments or lotions until dressing is completely removed and/or instructed by your doctor. There may be a small piece of suture material at one end of your incision. Do not pull or trim this. If it is bothersome or catching on clothing, you may cover it with a band-aid. IF INCISION IS LEAKING THROUGH DRESSING, CALL THE OFFICE . FOLLOW UP VISIT: If appointment is not already scheduled: Please call [facility] to make a follow-up appointment for 2 weeks after your surgery at . Stand-Alone Forms: My [facility], Opioid Pain Management, Smoking Cessation Medications and DC Order Prescriptions: New aspirin [Ecotrin Low Strength] 81 mg Tablet,Delayed Release (Dr/Ec) 81 mg PO BID 30 Days Qty: 60 RF: 0 acetaminophen 500 mg Tablet 1,000 mg PO Q8 14 Days Qty: 84 RF: 0 oxycodone 5 mg Tablet 5 mg PO Q4H MDD 6 tabs PRN (Reason: pain) Qty: 30 RF: 0 sennosides [Senokot] 8.6 mg Tablet 17.2 mg PO HS PRN (Reason: constipation) Qty: 30 RF: 0 Continued amlodipine 5 mg Tablet 5 mg PO QAM RF: 0 lisinopril 30 mg Tablet 30 mg PO QAM RF: 0 Prilosec OTC 20 mg Tablet,Delayed Release (Dr/Ec) 20 mg PO QAM RF: 0 levothyroxine 100 mcg Capsule 100 mcg PO QAM RF: 0 lorcaserin 10 mg Tablet 10 mg PO BID RF: 0 albuterol sulfate 90 mcg/actuation Aerosol Powdr Breath Activated 4 inh INHALATION QID PRN (Reason: SHIRTNESS OF BREATH) RF: 0 Linzess 72 mcg Capsule 72 mcg PO QAM RF: 0 Discontinued indomethacin 25 mg Capsule 25 mg PO BID RF: 0 oxycodone-acetaminophen 5-325 mg Tablet 1 tab PO Q6H PRN (Reason: Pain) RF: 0 Discharge Orders: Discharge Order (Routine); Ordered 10/04/19 Ordered By: Eugenio Busch/Other Patient Handouts: Replacement Knee Total Admission Data Admit Date/Time: 10/03/19 13:21 Attending Provider: Jovan Agustin Admit Provider: Jovan Agusitn Primary Care Provider: Hakan Covarrubias. Other Interventions: Discharge Summary Assessment (RN) Last Done: 10/04/19 13:50 DC Date/Time DO NOT enter until pt leaves facility: 10/04/19 16:25
[2019-10-04] MEDS ORDERED: CeleBREX 200 MG CAP PO SCH (21:00)
== END 2019-10-04 16:25 | disposition home health service (06) | DRG 470 ==
LOC: ASU 07:48 → 3E 13:21